=== PATIENT | male | born 1990 | race African-American/Black ===

== ENCOUNTER 2017-06-03 12:10 | Emergency (ER) | payer OTHER ==
[~2017-06-03] VITALS: Ht 170.2 cm; Wt 68.0 kg
[2017-06-03 12:36] VITALS: BP 140/83
== END 2017-06-03 14:24 | disposition left against medical advice (07) ==
LOC: ER 14:05
DX: Z53.21 Procedure and treatment not carried out due to patient leaving prior to being seen by health care provider (principal)

== ENCOUNTER 2017-09-16 11:51 | Emergency (ER) | payer OTHER ==
[~2017-09-16] VITALS: Ht 175.3 cm; Wt 81.0 kg
[2017-09-16 11:52] VITALS: BP 110/70
== END 2017-09-16 14:40 | disposition left against medical advice (07) ==
LOC: ER 11:51
DX: Z53.21 Procedure and treatment not carried out due to patient leaving prior to being seen by health care provider (principal)